=== PATIENT | female | born 1970 | race Hispanic/Latino ===

== ENCOUNTER 2022-12-20 07:37 | Day surgery (SDC) | payer OTHER ==
[2022-12-20] MEDS ORDERED: Ringers Lactate 1,000 ML IV ONE ×2 (08:14→12:43)
[2022-12-20 08:27] VITALS: O2SAT 100
[2022-12-20] MEDS ORDERED: MIDAZOLAM HCL 2 MG/2 ML INJ ONE (10:47)
[2022-12-20] MEDS ORDERED: FENTANYL CITR 100 MCG/2 ML ONE (10:47)
[2022-12-20] MEDS ORDERED: propofoL 200 MG/20 ML VIAL IV ONE (10:47)
[2022-12-20] MEDS ORDERED: dexAMETHasone 10 MG/ML VIAL ONE (10:47)
[2022-12-20] MEDS ORDERED: LIDOCAINE 2% MPF 5 ML VIAL ONE (10:47)
[2022-12-20] MEDS ORDERED: ROCURONIUM 50 MG/5 ML VIAL IV ONE (10:47)
[2022-12-20] MEDS ORDERED: ONDANSETRON 4 MG/2 ML VIAL ONE (10:56)
[2022-12-20] MEDS ORDERED: NA CHLORIDE 0.9% 1,000 ML ONE (11:25)
[2022-12-20] MEDS: CEFAZOLIN SODIUM 1 GM/VIAL ONE ×2 (11:50→11:54)
[2022-12-20] MEDS: LIDOCAINE 1% W/EPI 1:100,000 50 ML MDV ONE ×2 (11:51→12:09)
[2022-12-20] MEDS: OXYMETAZOLINE HCL 0.05% 15ML NAS ONE ×2 (11:51→12:09)
[2022-12-20] MEDS: BACITRACIN OINTMENT 14 GM TUBE TOP ONE ×2 (12:09→12:31)
[2022-12-20] MEDS ORDERED: GLYCOPYRROLATE 0.2 MG/ML SYR ONE (12:55)
[2022-12-20] MEDS ORDERED: NEOSTIGMINE 1 MG/ML -10 ML VIAL ONE (12:57)
[2022-12-20 15:45] VITALS: BP 115/80; TEMP 97
--- NOTE | 2022-12-21 22:35 | OP ---
Date of Procedure: 12/20/2022 Surgeon: WIL SPANN Primary Care Physician: Unknown. Preoperative Diagnoses: 1. Left nasal septal deviation. 2. Bilateral inferior turbinate hypertrophy. 3. Bilateral nasal valve collapse. Postoperative Diagnoses: 1. Left nasal septal deviation. 2. Bilateral inferior turbinate hypertrophy. 3. Bilateral nasal valve collapse. Procedures: 1. Bilateral nasal endoscopy. 2. Endoscopic septoplasty. 3. Superficial ablation of bilateral inferior turbinates with VivAer radiofrequency device. 4. Bilateral nasal valve remodeling with VivAer radiofrequency device. Anesthesia: General endotracheal anesthesia was administered. I also infiltrated approximately 10 mL of 1% lidocaine with 1:100,000 epinephrine into bilateral nasal septal mucosa, bilateral inferior turbinate mucosa, and bilateral nasal valves. Estimated Blood Loss: Approximately 15 mL. Specimens: Septal cartilage and bone submitted to pathology. Findings: Moderate to severe left nasal septal deviation with large inferior septal spur contacting the left inferior turbinates; bilateral nasal valve collapse, moderate; bilateral inferior turbinate hypertrophy 3/4. Complications: None. Disposition: Stable. The patient tolerated the procedure well. Indication For Procedure: Patient is a pleasant 52-year-old female who presented to my outpatient clinic with chronic left nasal obstruction secondary to severe septal deviation. Patient also had bilateral inferior turbinate hypertrophy upon exam in my office, as well as bilateral nasal valve collapse, which was improved with Gavino maneuver. Her condition has been refractory to outpatient medical therapy thus these were indications to bring the patient to operative suite for the above-mentioned procedures. She understood, all questions were answered. Risks versus benefits and complications were explained in detail and a consent form was signed, which was placed in the chart. Description Of Procedure: Patient was transferred from the preoperative holding area to the operative suite by Department of Anesthesia, placed on the operating table supine, sedated and intubated in normal fashion. Table was rotated to 180 degrees and head rest was placed. I infiltrated approximately 10 mL of 1% lidocaine with 1:100,000 epinephrine into bilateral nasal septal mucosa, inferior turbinate mucosa, and nasal valve tissue. Afrin-soaked nasal pledgets were introduced into bilateral nasal cavities and the patient was prepped and draped. I started by removing the Afrin-soaked nasal pledgets and I introduced a 0- degree rigid nasal endoscope bilaterally along the 4 bilateral nasal cavities and I was unable to advance completely on the left side secondary to a large bony spur as well as severe cartilaginous deviation. Right nasal cavity was more patent, but the patient had inferior turbinate hypertrophy. I then made a modified [place] incision on the left nasal septal mucosa utilizing a #15 blade scalpel down to the cartilaginous septum. I then elevated with a [place] elevator and then made a crossover incision with a #15 blade scalpel and then isolated the cartilage with a longer nasal speculum and I elevated the right nasal septal mucosa off the cartilage. I then removed the obstructive portions of the cartilage and bone. Most notably, a very large posterior septal spur located at the site of the vomer. I had to use a hammer and chisel in order to remove the bone. Once the obstructive septal cartilage and bone were removed. I then reapproximated the nasal septal mucosa with 4-0 plain gut suture in a box like fashion followed by mucosal incision reapproximation with the 4-0 plain gut suture in a continuous running fashion. Next, I placed my attention to the inferior turbinates. I used VivAer radiofrequency wand to superficially ablate bilateral inferior turbinate mucosa and I ablated at 5 positions on the inferior turbinates on bilateral inferior turbinates. Patient had excellent results. I then reduced a remodel bilateral nasal valve openings utilizing the VivAer hand piece by ablating at 3 different areas involving bilateral nasal valves. I had noticed immediate results with nasal patency after this procedure. I then coated 2 long strips of Surgifoam with antibiotic ointment and placed them up against bilateral nasal septal mucosa to help with coagulation, and then coated 2 Gómez splints with antibiotic ointment inserted bilaterally after cutting them down to size. I then sutured the Gómez splints at the caudal septum utilizing a 2-0 Prolene suture. A mustache dressing was placed. She tolerated the procedure well, will be discharged home on analgesic medication as well as topical and oral antibiotics. She will follow up in 1 week or sooner if needed. PAVAN/MELANIE Voice ID: [id number] Report ID: [id number] IVON
== END 2022-12-20 15:00 | disposition home or self-care (01) ==
LOC: OR 07:37
PROVIDERS: ATTEND Otolaryngology Facial Plastic Surgery
PROC: 095L8ZZ Destruction of Nasal Turbinate, Via Natural or Artificial Opening Endoscopic (ICD-10-PCS; 2022-12-20)
PROC: 09QK8ZZ Repair Nasal Mucosa and Soft Tissue, Via Natural or Artificial Opening Endoscopic (ICD-10-PCS; 2022-12-20)
PROC: 09BM8ZZ Excision of Nasal Septum, Via Natural or Artificial Opening Endoscopic (ICD-10-PCS; principal; 2022-12-20 09:00)
DX: J34.2 Deviated nasal septum (principal); J34.3 Hypertrophy of nasal turbinates; J34.89 Other specified disorders of nose and nasal sinuses
CPT/HCPCS: 88300; J0690; J1100; J2001; J2250; J2405; J2704; J2710; J3010; J7040; J7120